=== PATIENT | male | born 1995 | race African-American/Black ===

== ENCOUNTER → 2020-01-06 | Outpatient (CLI) | payer BC ==
[2020-01-06 08:44] LABS: SPERM MORPHOLOGY SENT TO REFERENC LAB
[2020-01-06 10:10] LABS: SPERM CONCENTRATION 122.6 X10^6/mL (>12.0); TOTAL SPERM COUNT 367.8 X10^6 (>33.0)
[2020-01-06 10:11] LABS: SPERM PROGRESSION 3
== END ==
LOC: OD 08:00
PROVIDERS: ATTEND Obstetrics & Gynecology Gynecology
DX: N46.11 Organic oligospermia (principal)
CPT/HCPCS: 36415; 89320